=== PATIENT | female | born 1955 | race Caucasian/White ===

== ENCOUNTER 2018-10-17 13:18 | Inpatient (IN) | payer MEDICAID ==
[~2018-10-17] VITALS: Ht 154.9 cm; Wt 62.4 kg
--- NOTE | 2018-10-17 14:15 | NUR ---
PT PRESENTS TO ED WITH C/O SOB AND INTERMITTENT DIZZINESS STARTING THIS AM. PT A&O, RESPS EVEN AND UNLABORED, DENIES PAIN. PT ATTACHED TO ALL MONITORS. PT'S SPO2 WAS 83% ON ROOM AIR ON ARRIVAL, PT STATES SHE DOES NOT USE HOME OXYGEN. OXYGEN APPLIED AT 2L/MIN VIA NC IN TRIAGE, THIS IS CONTINUED IN PT'S ROOM. PT TO HAVE CTA. CALL LIGHT IN REACH, S/O AT BEDSIDE. PT AND S/O UPDATED WITH POC.
[2018-10-17 14:16] LABS: BASOPHILS # (AUTO) 0.04 x10^3/uL (0-0.1); BASOPHILS % (AUTO) 1 % (0-1); EOSINOPHILS # (AUTO) 0.11 x10^3/uL (0-0.4); EOSINOPHILS % (AUTO) 1 % (1-7); LYMPHOCYTES # (AUTO) 1.89 x10^3/uL (1-3.4); LYMPHOCYTES % (AUTO) 24 % (22-44); MD NO; MEAN CORPUSCULAR HEMOGLOBIN 31.1 pg (27.0-34.8); MEAN CORPUSCULAR HGB CONC 32.9 g/dL (32.4-35.8); MEAN CORPUSCULAR VOLUME 94.6 fL (80-100); MEAN PLATELET VOLUME 8.4 fL (7.4-10.4); MONOCYTES # (AUTO) 0.52 x10^3/uL (0.2-0.8); MONOCYTES % (AUTO) 7 % (2-9); NEUTROPHILS # (AUTO) 5.25 x10^3/uL (1.8-6.8); NEUTROPHILS % (AUTO) 67 % (42-75); PLATELET COUNT 336 x10^3/uL (130-400); RED BLOOD COUNT 4.58 x10^6/uL (3.82-5.3); RED CELL DISTRIBUTION WIDTH 13.3 % (9.6-15.2)
[2018-10-17 14:24] LABS: ALBUMIN 3.9 g/dL (3.4-5.0); ANION GAP 3 mmol/L (5-15); CALCIUM 8.9 mg/dL (8.5-10.1); CHLORIDE 105 mmol/L (98-107); CREATININE 0.57 mg/dL (0.55-1.02)
--- NOTE | 2018-10-17 14:50 | NUR ---
SWETA ATTEMPTED X 2 WITHOUT SUCCESS BY THIS RN, ANOTHER RN TO ATTEMPT INSERTION FOR CTA.
[2018-10-17 15:04] LABS: TROPONIN I < 0.015 ng/mL (0.000-0.045)
--- NOTE | 2018-10-17 15:31 | NUR ---
REPORT GIVEN TO YESSICA GOLDMAN AT BEDSIDE, YESSICA WOOTEN AT BEDSIDE TO START PIV. PT AWAKE, ALERT, RESPS EVEN AND UNLABORED.
--- NOTE | 2018-10-17 15:31 | NUR ---
NOTE UNDONE, CHARTED ON WRONG PT.
--- NOTE | 2018-10-17 15:31 | NUR ---
Jose gagnon in EDM - 10/17/18 at 1531 by THIAGO REPORT GIVEN AT BEDSIDE TO YESSICA GOLDMAN. PT SLEEPING, RESPS EVEN AND UNLABORED.
--- NOTE | 2018-10-17 15:58 | NUR ---
FLOAT NURSE AT BEDSIDE TO PLACE US IV.
--- NOTE | 2018-10-17 16:11 | NUR ---
CHARGE NURSE INFORMED, UNABLE TO ESTABLISH IV.
--- NOTE | 2018-10-17 16:27 | NUR ---
EJ PLACED BY FLOAT RN. PT TAKEN TO CTA WITH FLOAT RN AT BEDSIDE.
[2018-10-17] MEDS ORDERED: OMNIPAQUE 350 MG/ML, 100ML BOTTLE ONE (16:50)
[2018-10-17] MEDS ORDERED: ALBUTEROL/IPRATROPIUM 2.5MG/0.5MG, 3 ML NPPB ONE (17:30)
[2018-10-17] MEDS ORDERED: methylPREDNISolone SOD SUCC 125 MG/2 ML IVP ONE (17:30)
--- NOTE | 2018-10-17 17:32 | NUR ---
PT IS RESTING IN BED, RESPIRATIONS EQUAL AND NON LABORED. NAD. PT IS CONNECTED TO THE MONITOR. CALL LIGHT WITHIN REACH.
[2018-10-17] MEDS ORDERED: methylPREDNISolone SOD SUCC 125 MG/2 ML ONE (17:35)
[2018-10-17] MEDS ORDERED: ALBUTEROL/IPRATROPIUM 2.5MG/0.5MG, 3 ML ONE (17:42)
[2018-10-17] MEDS ORDERED: NITR0.6T4 SL (18:31)
[2018-10-17] MEDS ORDERED: ASPI-496 PO (18:31)
[2018-10-17] MEDS ORDERED: ISOS20TA3 PO (18:31)
[2018-10-17] MEDS ORDERED: DULO30CA2 PO (18:31)
[2018-10-17] MEDS ORDERED: RANI150T4 PO (18:31)
[2018-10-17] MEDS ORDERED: GABA300C10 PO (18:31)
[2018-10-17] MEDS ORDERED: PHEN50TA4 PO (18:31)
[2018-10-17] MEDS ORDERED: METF500T17 PO (18:31)
[2018-10-17] MEDS ORDERED: CLOP75TA PO (18:31)
[2018-10-17] MEDS ORDERED: ATOR-2 PO (18:31)
[2018-10-17] MEDS ORDERED: LOSA25TA25 PO (18:31)
[2018-10-17] MEDS ORDERED: INSU100I13 SQ-INSULIN (18:31)
[2018-10-17] MEDS ORDERED: GLIP10TA13 PO (18:31)
--- NOTE | 2018-10-17 18:37 | NUR ---
WENT OVER MED REC WITH PT. PT IS ALERT, ORIENTED, WITH NAD. PT IS CONNECTED TO THE MONITOR. CALL LIGHT WITHIN REACH. AT BEDSIDE.
--- NOTE | 2018-10-17 18:57 | NUR ---
REPORT TO IAN JUAN.
--- NOTE | 2018-10-17 19:13 | NUR ---
REPORT GIVEN TO YESSICA JURADO
[2018-10-17 19:44] VITALS: BP 118/70
[2018-10-17] MEDS ORDERED: ACETAMINOPHEN 325 MG TABLET PO PRN (20:00)
[2018-10-17] MEDS: ENOXAPARIN 30 MG/0.3 ML SQ SCH (20:58)
[2018-10-17] MEDS ORDERED: ALBUTEROL/IPRATROPIUM 2.5MG/0.5MG, 3 ML NPPB PRN (21:00)
[2018-10-17] MEDS ORDERED: DEXTROSE 50%, 50ML SYRINGE IVPush PRN (21:30)
[2018-10-17] MEDS ORDERED: GLUCAGON 1 MG IM PRN (21:30)
[2018-10-17] MEDS ORDERED: DEXTROSE 4 GM TAB.CHEW PO PRN (21:30)
[2018-10-17] MEDS ORDERED: NITROGLYCERIN 0.4 MG BOTTLE (25 TABS) SL PRN (22:00)
[2018-10-18 02:05] VITALS: BP 101/59
[2018-10-18] MEDS ORDERED: AZITHROMYCIN 500 MG TABLET PO ONE (04:00)
[2018-10-18 06:34] VITALS: BP 114/74
[2018-10-18] MEDS: ALBUTEROL/IPRATROPIUM 2.5MG/0.5MG, 3 ML NPPB SCH ×3 (06:50→14:32)
[2018-10-18] MEDS ORDERED: AZITHROMYCIN 250 MG TABLET PO SCH (09:00)
[2018-10-18] MEDS ORDERED: ASPIRIN 81 MG TABLET EC PO SCH (09:00)
[2018-10-18] MEDS ORDERED: ISOSORBIDE MONONITRATE ER 30 MG TABLET PO SCH (09:00)
[2018-10-18] MEDS ORDERED: CLOPIDOGREL 75 MG TABLET PO SCH (09:00)
[2018-10-18] MEDS ORDERED: GABAPENTIN 400 MG CAPSULE PO SCH (09:00)
[2018-10-18] MEDS: PHENYTOIN 50 MG TAB.CHEW PO SCH ×2 (09:00→16:37)
[2018-10-18] MEDS ORDERED: LOSARTAN 25MG TABLET PO SCH (09:00)
[2018-10-18] MEDS ORDERED: FAMOTIDINE 20 MG TABLET PO SCH (09:00)
[2018-10-18] MEDS ORDERED: DULOXETINE 30 MG CAPSULE.DR PO SCH (09:00)
[2018-10-18] MEDS: INSULIN LISPRO 100 UNITS/ML, PEN SQ-INSULIN SCH ×2 (09:10→12:38)
[2018-10-18] MEDS: ENOXAPARIN 30 MG/0.3 ML SQ SCH (09:13)
[2018-10-18 14:00] VITALS: BP 108/66
[2018-10-18] MEDS ORDERED: OMNIPAQUE 350 MG/ML, 100ML BOTTLE ONE (14:28)
[2018-10-18] MEDS ORDERED: AZIT250T89 PO (15:46)
[2018-10-18] MEDS ORDERED: PRED20TA PO (15:46)
[2018-10-18] MEDS ORDERED: ALBU90AE INH (15:46)
[2018-10-18] MEDS ORDERED: ATORVASTATIN 80 MG TABLET PO SCH (21:00)
[2018-10-18] MEDS ORDERED: INSULIN GLARGINE 100 UNITS/ML, PEN SQ-INSULIN SCH (21:00)
== END 2018-10-18 17:58 | disposition home or self-care (01) | DRG 189 ==
LOC: ED 17:48 → EDIP 18:22 → 4WST 19:36
PROVIDERS: ADMIT Family Medicine; ATTEND Family Medicine
DX: J96.01 Acute respiratory failure with hypoxia (principal); J44.1 Chronic obstructive pulmonary disease with (acute) exacerbation; E27.9 Disorder of adrenal gland, unspecified; E78.00 Pure hypercholesterolemia, unspecified; E78.5 Hyperlipidemia, unspecified; F17.200 Nicotine dependence, unspecified, uncomplicated; G40.909 Epilepsy, unspecified, not intractable, without status epilepticus; I25.10 Atherosclerotic heart disease of native coronary artery without angina pectoris; I25.2 Old myocardial infarction; Z88.6 Allergy status to analgesic agent; Z91.030 Bee allergy status; Z88.0 Allergy status to penicillin; Z91.018 Allergy to other foods; I10 Essential (primary) hypertension; Z82.3 Family history of stroke; Z83.3 Family history of diabetes mellitus; E11.51 Type 2 diabetes mellitus with diabetic peripheral angiopathy without gangrene; Z86.718 Personal history of other venous thrombosis and embolism; Z86.73 Personal history of transient ischemic attack (TIA), and cerebral infarction without residual deficits; Z79.82 Long term (current) use of aspirin; Z79.4 Long term (current) use of insulin; Z79.899 Other long term (current) drug therapy
CPT/HCPCS: 36415; 99285; J7620; 71275; 74170; 80048; 80185; 82040; 82962; 83880; 84484; 85025; 85379; 93005; 94640; 99406; G0378; J1650; Q9967; J1815; J2930; J7512

== ENCOUNTER 2021-04-25 12:36 | Emergency (ER) | payer MEDICAID ==
[~2021-04-25] VITALS: Ht 160 cm; Wt 56.4 kg
[~2021-04-25 12:36] MED LIST: ALBU90AE INH; ASPI-496 PO; ATOR-2 PO; AZIT250T89 PO; CLOP75TA PO; DULO30CA2 PO; GABA300C10 PO; GLIP10TA13 PO; INSU100I13 SQ-INSULIN; ISOS20TA10 PO; LOSA25TA25 PO; METF500T17 PO; NITR0.6T4 SL; PHEN50TA4 PO; PRED20TA PO; RANI150T4 PO
[2021-04-25] MEDS ORDERED: SODIUM CHLORIDE FLUSH 10ML SYR IVF ONE (13:30)
[2021-04-25 13:56] LABS: BASOPHILS % (AUTO) 1 % (0-1); EOSINOPHILS % (AUTO) 1 % (1-7); LYMPHOCYTES % (AUTO) 23 % (22-44); MEAN CORPUSCULAR HEMOGLOBIN 32.1 pg (27.0-34.8); MEAN CORPUSCULAR HGB CONC 33.9 g/dL (32.4-35.8); MEAN PLATELET VOLUME 7.6 fL (7.4-10.4); MONOCYTES % (AUTO) 8 % (2-9); NEUTROPHILS % (AUTO) 68 % (42-75); PLATELET COUNT 244 x10^3/uL (130-400); RED BLOOD COUNT 4.51 x10^6/uL (3.82-5.3); RED CELL DISTRIBUTION WIDTH 13.9 % (9.6-15.2)
[2021-04-25 14:04] LABS: ALBUMIN 3.5 g/dL (3.4-5.0); ANION GAP 3 mmol/L (5-15); CALCIUM 8.7 mg/dL (8.5-10.1); CHLORIDE 108 mmol/L (98-107)
[2021-04-25 14:09] LABS: ALANINE AMINOTRANSFERASE 32 U/L (12-78); ALKALINE PHOSPHATASE 90 U/L (45-117); BILIRUBIN,TOTAL 0.5 mg/dL (0.2-1.0); CREATININE 0.53 mg/dL (0.55-1.02); TOTAL PROTEIN 7.3 g/dL (6.4-8.2); TROPONIN I < 0.015 ng/mL (0.000-0.045)
--- NOTE | 2021-04-25 15:52 | NUR ---
PIV PLACED. CT UPDATED.
--- NOTE | 2021-04-25 16:08 | NUR ---
PT AT CT.
[2021-04-25] MEDS ORDERED: ACETAMINOPHEN 500 MG TABLET PO ONE (16:30)
[2021-04-25] MEDS ORDERED: ACETAMINOPHEN 500 MG TABLET ONE (16:30)
[2021-04-25 16:33] VITALS: BP 128/71
[2021-04-25] MEDS ORDERED: OMNIPAQUE 350 MG/ML, 100ML BOTTLE ONE (16:46)
--- NOTE | 2021-04-25 16:51 | NUR ---
ALL RESULTS ARE BACK AT THIS TIME. CHART UP FOR RECHECK.
--- NOTE | 2021-04-25 17:06 | NUR ---
PT ELOPED ED WITH PIV STILL IN PLACE. PT NOT LOCATED IN AND AROUND ED. [facility] CALLED. OUTSIDE INSTALLER APPRENTICE AND ERMD NOTIFIED.
== END 2021-04-25 17:08 | disposition left against medical advice (07) ==
LOC: ED 12:41
DX: S20.212A Contusion of left front wall of thorax, initial encounter (principal); I10 Essential (primary) hypertension; E11.9 Type 2 diabetes mellitus without complications; E78.00 Pure hypercholesterolemia, unspecified; Z86.73 Personal history of transient ischemic attack (TIA), and cerebral infarction without residual deficits; Z87.891 Personal history of nicotine dependence; Q89.8 Other specified congenital malformations; Y00.XXXA Assault by blunt object, initial encounter; Y93.89 Activity, other specified; Y92.410 Unspecified street and highway as the place of occurrence of the external cause; Y99.8 Other external cause status
CPT/HCPCS: 36415; 71045; 71260; 74177; 80053; 84484; 85025; 93005; 99285; Q9967